=== PATIENT | male | born 1955 | race Caucasian/White ===

== ENCOUNTER 2023-10-04 10:45 | Outpatient (CLI) | payer MEDICARE, SELFPAY ==
[2023-10-04 12:10] VITALS: BP 129/77; PULSE 96
--- NOTE | 2023-10-04 13:38 | W.PM.STED ---
Stress Test Note Date Date Seen: 10/04/23 Date of test: 10/04/23 Providers Primary care provider: Juan Manuel Gan Stress test physician: Ricarda Quinones Stress Test Note Stress test ordered: Exercise Stress Test Indication for test: Dyspnea Stress test medicine: None Results discussion: Resting EKG: Sinus rhythm, 82 beats per minute. Flipped T-waves lead V1. Resting blood pressure: 122/76 Stress test: Patient was exercised on the treadmill following standard Kyle protocol. He was able to exercise to 9 minutes 2nd it the needing to stop due to reaching his exercise sent to 10.3 Mets. He did have a maximum heart rate of 155 beats per minute which was 120% of a calculated target heart rate of 129. Unfortunately his blood pressures during the test did not record. I do recollect that his systolic did get into the 150s with exercise but there was nothing concerning with his blood pressure. There was no significant arrhythmia, no concerning ischemic change. Patient actually was not very dyspneic on my observation during the stress test. He did request to stop as he was at a good heart rate and was feeling that he was near exercise capacity. He overall did not feel that he was excessively short of breath for the level of activity he was at. Impression: Subjectively negative, objectively negative exercise treadmill stress test. Follow up suggested: Patient was discharged home in stable condition. He can follow up with his primary care provider.
== END 2023-10-04 10:46 | disposition home or self-care (01) ==
LOC: STRESS 10:46
PROVIDERS: PCP Family Medicine; Visit Provider Family Medicine
DX: R06.00 Dyspnea, unspecified (principal)
CPT/HCPCS: 93016; 93017